=== PATIENT | male | born 1990 | race Caucasian/White ===

== ENCOUNTER 2024-11-05 06:12 | Inpatient (IN) | payer OTHER ==
[2024-11-05] MEDS ORDERED: LORazepam 1 MG TAB PO PRN ×4 (06:38)
[2024-11-05] MEDS ORDERED: LORazepam 0.5 MG TAB PO PRN (06:38)
[2024-11-05] MEDS ORDERED: LORazepam 1 MG/0.5 ML VIAL IV PRN ×4 (06:38→08:33)
--- NOTE | 2024-11-05 06:45 | ED ---
Alcohol HPI - General Chief Complaint: Alcohol Stated Complaint: halluncinations from alcohol detox Time Seen by Provider: 11/05/24 06:13 Source: patient, RN notes reviewed Mode of arrival: EMS Limitations: no limitations - History of Present Illness Initial Comments: This is a 33-year-old male who presents to the emergency department for alcohol withdrawals. Patient checked into [facility] on 11/03 for alcohol abuse. He reports that he stopped drinking alcohol on the third before he checked in. He does report a history of alcohol withdrawals, and states that he typically gets confused and hallucinates for 3 to 4 days. States that this is worse at night because he is tired. Denies any history of withdrawal seizures. He is on the oral Ativan withdrawal protocol at [facility]. Reports mild nausea. He was sent in for evaluation, as he began hallucinating this morning. He reportedly thought that a member of the nursing staff was his daughter and also asked if he was a fighter. MD Complaint: alcohol withdrawal - Related Data Allergies Allergy/AdvReac Type Severity Reaction Status Date / Time No Known Allergies Allergy Verified 11/05/24 06:26 Review of Systems ROS Statement: Those systems with pertinent positive or pertinent negative responses have been documented in the HPI. ROS Other: All systems not noted in ROS Statement are negative. Past Medical History Additional Past Medical History / Comment(s): ETOH abuse History of Any Multi-Drug Resistant Organisms: None Reported Past Surgical History: No Surgical Hx Reported Past Psychological History: Anxiety Smoking Status: Current every day smoker Past Alcohol Use History: Abuse, Heavy Past Drug Use History: Prescription Drug Abuse General Exam Limitations: no limitations General appearance: alert, in no apparent distress Head exam: Present: atraumatic, normocephalic, normal inspection Respiratory exam: Present: normal lung sounds bilaterally. Absent: respiratory distress, wheezes, rales, rhonchi, stridor Cardiovascular Exam: Present: regular rate, normal rhythm GI/Abdominal exam: Present: soft. Absent: distended, tenderness Neurological exam: Present: alert, oriented X3, CN II-XII intact Psychiatric exam: Present: normal affect, normal mood Skin exam: Present: warm, dry, intact, normal color. Absent: rash Course Vital Signs 11/05/24 06:14 Temperature 98.8 F Pulse Rate 91 Respiratory 17 Rate Blood Pressure 130/80 O2 Sat by Pulse 99 Oximetry Medical Decision Making - Medical Decision Making This is a 33-year-old male who presents to the emergency department for alcohol withdrawals. Was pt. sent in by a medical professional or institution? @ -[facility] Did you speak to anyone other than the patient for history? @ -[facility] provided the history as to what took place this morning with the hallucinations. Did you review nursing and triage notes? @ -Yes, and I agree, it is accurate with regards to the patient's symptoms. Were old charts reviewed? @ -No Differential Diagnosis? @ -Sympathomimetic syndrome, alcohol withdrawals, anti-muscarinic syndrome, serotonin syndrome, neuroleptic malignant syndrome, thyrotoxicosis, encephalitis, acute psychosis, hypoglycemia, trauma, sepsis. This is not meant to be an all-inclusive list. EKG interpreted by me (3pts min.)? @ -Not obtained X-rays interpreted by me (1pt min.)? @ -Not obtained CT interpreted by me (1pt min.)? @ -Not obtained U/S interpreted by me (1pt. min.)? @ -Not obtained What testing was considered but not performed? (CT, X-rays, U/S, labs)? Why? @ -None What meds were considered but not given? Why? @ -None Did you discuss the management of the patient with other professionals? @ -Yes, Silvestre Aguirre with [facility], who accepts the patient for admission. Did you reconcile home meds? @ -No Was smoking cessation discussed for >3mins.? @ -I discussed smoking cessation for greater than 3 minutes. The risk of smoking were discussed with the patient including but not limited to risks of cancer, stroke, coronary artery disease and COPD. Also discussed with patient were multiple methods of quitting smoking. Lastly we discussed the financial cost of smoking. Was critical care preformed (if so, how long)? @ -No Were there social determinants of health that impacted care today? How? (Homelessness, low income, unemployed, alcoholism, drug addiction, transportation, low edu. Level, literacy, decrease access to med. care, half-way, rehab)? @ -Alcoholism, leading to withdrawal symptoms. Rehab, who sent the patient in for evaluation. Was there de-escalation of care discussed even if they declined? (Discuss DNR or withdrawal of care, Hospice)? @ -No What co-morbidities impacted this encounter? (DM, HTN, Smoking, COPD, CAD, Cancer, CVA, Hep., AIDS, mental health diagnosis, sleep apnea, morbid obesity)? @ -Alcoholism, smoking Was patient admitted / discharged? @ -Admitted. Lab work demonstrates elevated LFTs consistent with patient's history of alcohol abuse. Lab work otherwise unremarkable. He had an initial CIWA of 4 on arrival, which progressed to 11. He continued hallucinating and was not making much of any sense during conversation. He also became very paranoid and aggressive. Given that his symptoms were worsening despite being on the oral Ativan withdrawal protocol, he was admitted to medicine for alcohol withdrawal delirium. CIWA protocol ordered. Case discussed with ED attending Dr. Mcdonough. Undiagnosed new problem with uncertain prognosis? @ -None Drug Therapy requiring intensive monitoring for toxicity (Heparin, Nitro, Insulin, Cardizem)? @ -None Were any procedures done? @ -None Diagnosis/symptom? @ -Alcohol withdrawal delirium Acute, or Chronic, or Acute on Chronic? @ -Acute Uncomplicated (without systemic symptoms) or Complicated (systemic symptoms)? @ -Uncomplicated Side effects of treatment? @ -None Exacerbation, Progression, or Severe Exacerbation] @ -Not applicable Poses a threat to life or bodily function? @ -Yes, can lead to DTs, which can be life-threatening. - Lab Data Result diagrams: 11/05/24 07:11 11/05/24 07:11 Lab Results 11/05/24 11/05/24 Range/Units 07:11 07:11 WBC 4.05 L (4.50-10.00) 10*3/uL RBC 4.85 (4.40-5.60) 10*6/uL Hgb 14.0 (13.0-17.0) g/dL Hct 42.2 (39.6-50.0) % MCV 87.0 (80.0-97.0) fL MCH 28.9 (27.0-32.0) pg MCHC 33.2 (32.0-37.0) g/dL Plt Count 169 (140-440) 10*3/uL MPV 9.9 (9.5-12.2) fL Immature Gran % (Auto) 0.5 % Neutrophils % 55.6 % Lymphocytes % 29.6 % Monocytes % 9.9 % Eosinophils % 3.7 % Basophils % 0.7 % Immature Gran # 0.02 (0.00-0.04) 10*3/uL Neutrophils # 2.25 (1.80-7.70) 10*3/uL Lymphocytes # 1.20 (0.90-5.00) 10*3/uL Monocytes # 0.40 (0.20-1.00) 10*3/uL Eosinophils # 0.15 (0.04-0.35) 10*3/uL Basophils # 0.03 (0.00-0.10) 10*3/uL Sodium 139 (137-145) mmol/L Potassium 4.0 (3.5-5.1) mmol/L Chloride 97 L (98-107) mmol/L Carbon Dioxide 28 (22-30) mmol/L Anion Gap 14 mmol/L BUN 15 (9-20) mg/dL Creatinine 0.93 (0.66-1.25) mg/dL Est GFR (CKD-EPI)AfAm >90 (>60 ml/min/1.73 sqM) Est GFR (CKD-EPI)NonAf >90 (>60 ml/min/1.73 sqM) Glucose 118 H (74-99) mg/dL Calcium 9.7 (8.4-10.2) mg/dL Phosphorus 3.5 (2.5-4.5) mg/dL Magnesium 2.2 (1.6-2.3) mg/dL Total Bilirubin 0.9 (0.2-1.3) mg/dL AST 197 H (17-59) U/L ALT 201 H (4-49) U/L Alkaline Phosphatase 84 (38-126) U/L Total Protein 9.0 H (6.3-8.2) g/dL Albumin 5.2 H (3.5-5.0) g/dL Serum Alcohol <10 mg/dL Disposition Clinical Impression: Alcohol withdrawal delirium, Nicotine dependence Disposition: ADMITTED IP TO THIS HOSP
[2024-11-05 07:25] LABS: Basophils # (A) 0.03 10*3/uL (0.00-0.10); Basophils % (A) 0.7 %; Eosinophils # (A) 0.15 10*3/uL (0.04-0.35); Eosinophils % (A) 3.7 %; HCT 42.2 % (39.6-50.0); HGB 14.0 g/dL (13.0-17.0); Lymphocytes # (A) 1.20 10*3/uL (0.90-5.00); Lymphocytes % (A) 29.6 %; MCH 28.9 pg (27.0-32.0); MCHC 33.2 g/dL (32.0-37.0); MCV 87.0 fL (80.0-97.0); Monocytes # (A) 0.40 10*3/uL (0.20-1.00); Monocytes % (A) 9.9 %; Neutrophils # (A) 2.25 10*3/uL (1.80-7.70); Neutrophils % (A) 55.6 %; Platelet Count 169 10*3/uL (140-440); RBC 4.85 10*6/uL (4.40-5.60); RDW 13.7 % (11.5-14.5); WBC 4.05 10*3/uL (4.50-10.00)
[2024-11-05 07:33] LABS: ALT 201 U/L (4-49); AST 197 U/L (17-59); African American GFR (CKD) >90 (>60 ml/min/1.73 sqM); Albumin 5.2 g/dL (3.5-5.0); Alkaline Phosphatase 84 U/L (38-126); Anion Gap 14 mmol/L; Blood Urea Nitrogen 15 mg/dL (9-20); Calcium 9.7 mg/dL (8.4-10.2); Carbon Dioxide 28 mmol/L (22-30); Chloride 97 mmol/L (98-107); Glucose 118 mg/dL (74-99); Magnesium 2.2 mg/dL (1.6-2.3); Non-African American GFR(CKD) >90 (>60 ml/min/1.73 sqM); Potassium 4.0 mmol/L (3.5-5.1); Sodium 139 mmol/L (137-145); Total Protein 9.0 g/dL (6.3-8.2)
[2024-11-05] MEDS: SODIUM CHLORIDE 0.9% 1,000 ML IV ONE (08:19)
[2024-11-05] MEDS: diphenhydrAMINE 50 MG/ML 1 ML VIAL IVP STA (08:24)
[2024-11-05] MEDS: LORazepam 1 MG/0.5 ML VIAL IV STA ×2 (08:26→10:25)
[2024-11-05] MEDS: ONDANSETRON 4 MG/2 ML VIAL IVP STA (08:27)
[2024-11-05] MEDS: NICOTINE 14MG/24HR PATCH TRANSDERM STA (08:29)
[2024-11-05] MEDS ORDERED: NALOXONE 0.4 MG/ML 1 ML VIAL IV PRN (08:33)
[2024-11-05] MEDS: MULTIVITAMINS, THERA 1 EACH TAB PO SCH (08:38)
[2024-11-05] MEDS: FOLIC ACID 1 MG TAB PO SCH (08:38)
[2024-11-05] MEDS: THIAMINE 100 MG/ML 2 ML VIAL IM STA (08:39)
[2024-11-05] MEDS: chlordiazePOXIDE 25 MG CAP PO SCH (09:08)
[2024-11-05] MEDS: PANTOPRAZOLE 40 MG/10 ML VIAL IV SCH (09:10)
[2024-11-05 10:19] LABS: Barbiturate Screen,Urine Not Detected (NotDetected); Benzodiazepines Screen,Urine Detected (NotDetected); Opiate Screen,Urine Detected (NotDetected); Oxycodone Screen, Urine Not Detected (NotDetected); Phencyclidine Screen,Urine Not Detected (NotDetected); Tricyclic Antidepressant,Urine Not Detected (NotDetected); Urn Cannabinoid Scrn Not Detected (NotDetected)
[2024-11-05] MEDS: SODIUM CHLORIDE 0.9% 1,000 ML IV SCH (10:25)
[2024-11-05] MEDS: DEXTROSE 5%-0.45% NACL 1,000 ML IV SCH (11:17)
[2024-11-05] MEDS: LORazepam 1 MG/0.5 ML VIAL IV PRN ×3 (11:29→19:10)
--- NOTE | 2024-11-05 13:54 | P.HPIM ---
History of Present Illness H&P Date: 11/05/24 History of Presenting Illness: Patient is a 33-year-old male with a past medical history of alcoholism drinking a reported fifth and a half a day of liquor with last drink reported to be on the morning of 11/03/24. Patient was in inpatient rehab at [facility] where he was admitted on 11/03/2024, however overnight patient's alcohol withdrawal symptoms were reported to be significantly worsened despite administration of oral Ativan. Patient with moderate tremors, diaphoresis, confusion, agitation, aggressive behaviors and experiencing visual and auditory hallucinations. Patient was sent to our facility from [facility] for inpatient medical assisted detox due to significant alcohol withdrawal with delirium tremens. Upon arrival to our facility, patient underwent evaluation in the emergency department. Signs upon arrival show blood pressure 130/80, heart rate 91, respiratory rate 17, temp 98.8 F, and SpO2 of 99% on room air. Labs completed and reviewed. CBC showing leukopenia with WBC count of 4.05. BMP showing hypochloremia with chloride of 97. Blood glucose 118. Calcium 9.7. Magnesium 2.2. Liver profile showing transaminitis with AST of 197, ALT of 201, and alkaline phosphatase of 84. Urine drug screen positive for opiates and benzodiazepines. Serum alcohol level was negative. Patient seen and fully evaluated in ER room 14. Patient is restless, agitated, confused, and having noted visual and auditory hallucinations patient walking ar ound the room looking for his 's. Difficulty with redirecting. Patient was walking around the room looking for his and kids. Patient looking under the bed and talking to things in the room. Patient holding paper towel like a cigarette with motions as though he was smoking. A sitter was brought to bedside to maintain the safety. Review of systems: ROS limited secondary to acute delirium. Physical exam: Vital signs reviewed and stable. General: Nontoxic, no distress and appears stated age. Derm: Skin warm normal coloration for ethnicity. Mildly diaphoretic Head: Atraumatic, normocephalic and symmetric. Eyes: EOM's intact, no lid lag, and anicteric sclera Mouth: no lip lesions, mucus membranes moist Cardiovascular: regular rate and rhythm with normal S1S2, no murmur, positive posterior tibial pulses bilaterally, and cap refill < 2 seconds. Lungs: Respirations even, regular, and unlabored on room air. Lungs CTA bilaterally, no rhonchi, no rales, no wheezing, and no accessory muscle usage. Abdominal: soft, nontender to palpation, no guarding, no appreciable organomegaly Ext: ROM intact. No gross muscle atrophy, no edema, no contractures Neuro/psych: Speech clear, face symmetrical GCS 14.. Patient fidgety and restless and difficult time following directions or being redirected. Visual and auditory hallucinations present. Assessment and Plan of Care: Alcohol withdrawal with delirium tremens Acute Metabolic encephalopathy with visual and auditory hallucinations, secondary to above Transaminitis Longstanding history of alcohol abuse -Order placed for monitoring of CIWA scores and patient to be medicated with Ativan 0.5 mg every 4 hours as needed for CIWA score of 4-5, Ativan 1 mg every 4 hours for CIWA score of 6-7, Ativan 2 mg every 3 hours CIWA score of 8-9, and Ativan 2 mg every 2 hours forr CIWA score of 10 or greater. -Patient started on scheduled Librium 50 mg 3 times daily in addition to CIWA protocol. -Continuous IV hydration with 0.9% normal saline at 150 cc/h. -Thiamine 100 mg daily, and Multivitamin daily, and Folate 1 mg daily -Seizure, fall, aspiration, and elopement precautions in place. -Urine drug screen negative for opiates and benzodiazepines -Continued close monitoring of electrolytes and replace as needed. -Telemetry monitoring. Nicotine dependence Recommend smoking cessation, order placed for nicotine patch 21 mg daily. Data and imaging reviewed: As stated above in HPI The patient is admitted with an anticipated greater than 2 midnight stay for e valuation of alcohol withdrawal with delirium tremens CODE STATUS: Full code DVT prophylaxis: FRACISCO menjivar and SCDs Discussed with: Patient, sitter at bedside, RN, and ED provider Anticipated discharge date: Pending clinical course Anticipated discharge place: Return to [facility] Patient was seen independently by Nurse Practitioner. This document was prepared using [employer] dictation software. Please allow for errors in mapping technician while rare they do occur. Silvestre Aguirre NP rendered care for this patient independently, reviewed the findings and plan as documented in the note above and agree with plan. I did not physically speak with or examine the patient on this date. Past Medical History Additional Past Medical History / Comment(s): ETOH abuse History of Any Multi-Drug Resistant Organisms: None Reported Past Surgical History: No Surgical Hx Reported Past Psychological History: Anxiety Smoking Status: Current every day smoker Past Alcohol Use History: Abuse, Heavy Past Drug Use History: Prescription Drug Abuse Medications and Allergies Home Medications Medication Instructions Recorded Confirmed Type Acetaminophen [Tylenol] 650 mg PO Q4H PRN 11/05/24 11/05/24 History Calcium Phos/D3/Magnesium/Zinc 1 tab PO TID PRN 11/05/24 11/05/24 History [Xbhivwg-Kbs-Aicr-Vitamin D3] Chlorpheniramine Maleate 4 mg PO Q4H PRN 11/05/24 11/05/24 History [Chlor-Trimeton] Hyoscyamine Sulfate [Levsin] 0.125 mg PO QID PRN 11/05/24 11/05/24 History Ibuprofen [Motrin Ib] 600 mg PO Q6H PRN 11/05/24 11/05/24 History LORazepam [Ativan] 1 - 2 mg PO Q4H PRN 11/05/24 11/05/24 History Loperamide HCl [Imodium A-D] 4 mg PO QID PRN 11/05/24 11/05/24 History Melatonin 10 mg PO HS 11/05/24 11/05/24 History Mirtazapine [Remeron] 15 mg PO HS 11/05/24 11/05/24 History Multivitamins, Thera [Multivitamin 1 tab PO DAILY 11/05/24 11/05/24 History (formulary)] Mylanta Regular Strength 30 ml PO Q4H PRN 11/05/24 11/05/24 History Thiamine HCl [Vitamin B-1] 100 mg PO DAILY 11/05/24 11/05/24 History buprenorphine HCL [Subutex] See Rx Instructions .ROUTE .COMPLEX 11/05/24 11/05/24 History ondansetron HCL [Zofran] 8 mg PO Q6H PRN 11/05/24 11/05/24 History Allergies Allergy/AdvReac Type Severity Reaction Status Date / Time No Known Allergies Allergy Verified 11/05/24 13:23 Physical Exam Vitals: Vital Signs Temp Pulse Resp BP Pulse Ox 11/05/24 06:14 98.8 F 91 17 130/80 99 Intake and Output 11/04/24 11/05/24 11/05/24 22:59 06:59 14:59 Other: Weight 81.647 kg Results CBC & Chem 7: 11/05/24 07:11 11/05/24 07:11 Labs: Abnormal Lab Results - Last 24 Hours (Table) 11/05/24 11/05/24 Range/Units 07:11 07:11 WBC 4.05 L (4.50-10.00) 10*3/uL Chloride 97 L (98-107) mmol/L Glucose 118 H (74-99) mg/dL AST 197 H (17-59) U/L ALT 201 H (4-49) U/L Total Protein 9.0 H (6.3-8.2) g/dL Albumin 5.2 H (3.5-5.0) g/dL
[2024-11-05] MEDS: ACETAMINOPHEN TAB 325 MG TAB PO PRN (19:05)
[2024-11-05] MEDS: ONDANSETRON 4 MG/2 ML VIAL IVP PRN (19:06)
[2024-11-05] MEDS: LORazepam 1 MG TAB PO PRN (21:10)
[2024-11-06] MEDS: NICOTINE 21MG/24HR PATCH TRANSDERM SCH (08:15)
[2024-11-06] MEDS: KETOROLAC 15 MG/ML 1 ML VIAL IVP PRN (08:15)
[2024-11-06] MEDS: THIAMINE 100 MG TAB PO SCH (08:15)
[2024-11-06] MEDS: LORazepam 0.5 MG TAB PO PRN (09:24)
[2024-11-06] MEDS: LORazepam 1 MG TAB PO PRN (11:28)
--- NOTE | 2024-11-06 15:47 | P.PN ---
Subjective Progress Note Date: 11/06/24 Hospital Course: Patient is a 33-year-old male with a past medical history of alcoholism drinking a reported fifth and a half a day of liquor with last drink reported to be on the morning of 11/03/24. Patient was in inpatient rehab at [facility] where he was admitted on 11/03/2024, however overnight patient's alcohol withdrawal symptoms were reported to be significantly worsened despite administration of oral Ativan. Patient with moderate tremors, diaphoresis, confusion, agitation, aggressive behaviors and experiencing visual and auditory hallucinations. Patient was sent to our facility from [facility] for inpatient medical assisted detox due to significant alcohol withdrawal with delirium tremens. Upon arrival to our facility, patient underwent evaluation in the emergency department. Signs upon arrival show blood pressure 130/80, heart rate 91, respiratory rate 17, temp 98.8 F, and SpO2 of 99% on room air. Labs completed and reviewed. CBC showing leukopenia with WBC count of 4.05. BMP showing hypochloremia with chloride of 97. Blood glucose 118. Calcium 9.7. Magnesium 2.2. Liver profile showing transaminitis with AST of 197, ALT of 201, and alkal ine phosphatase of 84. Urine drug screen positive for opiates and benzodiazepines. Serum alcohol level was negative. Patient seen and fully evaluated in ER room 14. Patient is restless, agitated, confused, and having noted visual and auditory hallucinations patient walking around the room looking for his 's. Difficulty with redirecting. Patient was walking around the room looking for his and kids. Patient looking under the bed and talking to things in the room. Patient holding paper towel like a cigarette with motions as though he was smoking. A sitter was brought to bedside to maintain the safety. Physical exam: Vital signs reviewed and stable. General: Nontoxic, no distress and appears stated age. Derm: Skin warm normal coloration for ethnicity. Mildly diaphoretic Head: Atraumatic, normocephalic and symmetric. Eyes: EOM's intact, no lid lag, and anicteric sclera Mouth: no lip lesions, mucus membranes moist Cardiovascular: regular rate and rhythm with normal S1S2, no murmur, positive posterior tibial pulses bilaterally, and cap refill < 2 seconds. Lungs: Respirations even, regular, and unlabored on room air. Lungs CTA bilater ally, no rhonchi, no rales, no wheezing, and no accessory muscle usage. Abdominal: soft, nontender to palpation, no guarding, no appreciable organomegaly Ext: ROM intact. No gross muscle atrophy, no edema, no contractures Neuro/psych: Speech clear, face symmetrical GCS 14.. Patient fidgety and res tless. Assessment and Plan of Care: Alcohol withdrawal with delirium tremens Acute Metabolic encephalopathy with visual and auditory hallucinations, secondary to above Transaminitis Longstanding history of alcohol abuse - Continue monitoring of CIWA scores and patient to be medicated with Ativan 0.5 mg every 4 hours as needed for CIWA score of 4-5, Ativan 1 mg every 4 hours for CIWA score of 6-7, Ativan 2 mg every 3 hours CIWA score of 8-9, and Ativan 2 mg every 2 hours forr CIWA score of 10 or greater. Patient has had a total of 16 mg of Ativan over the past 24 hours in addition to scheduled Librium. -Continue scheduled Librium 50 mg 3 times daily in addition to CIWA protocol. -Thiamine 100 mg daily, and Multivitamin daily, and Folate 1 mg daily -Seizure, fall, aspiration, and elopement precautions in place. -Urine drug screen negative for opiates and benzodiazepines -Continued close monitoring of electrolytes and replace as needed. -Telemetry monitoring. Nicotine dependence Recommend smoking cessation, order placed for nicotine patch 21 mg daily. Data and imaging reviewed: Labs reviewed. CBC showing leukopenia with WBC count of 4.05. BMP showing hypochloremia with chloride of 97. Blood glucose 118. Calcium 9.7. Magnesium 2.2. Liver profile showing transaminitis with AST of 197, ALT of 201, and alkaline phosphatase of 84. Urine drug screen positive for opiates and benzodiazepines. -Vital signs reviewed. Blood pressure 139/89, heart rate 53, respiratory rate 16, temp 98.0 F, SpO2 98% on room air CODE STATUS: Full code DVT prophylaxis: FRACISCO menjivar and SCDs Discussed with: Patient, sitter at bedside, patient's sister and mother, and RN Anticipated discharge date: Pending clinical course Anticipated discharge place: Per family patient plans to be discharged to [facility] Patient was seen independently by Nurse Practitioner. This document was prepared using [employer] dictation software. Please allow for errors in zipper ironer while rare they do occur. Silvestre Aguirre NP rendered care for this patient independently, reviewed the findings and plan as documented in the note above and agree with plan. I did not physically speak with or examine the patient on this date. Objective - Vital Signs Vital signs: Vital Signs Temp 98 F 11/06/24 07:00 Pulse 53 L 11/06/24 07:00 Resp 16 11/06/24 07:00 BP 139/89 11/06/24 07:00 Pulse Ox 98 11/06/24 07:00 FiO2 Intake & Output 11/05/24 11/06/24 11/06/24 18:59 06:59 18:59 Intake Total 2240 Balance 2240 Weight 81.647 kg Intake: Intake, IV Titration 1650 Amount Sodium Chloride 0.9% 1, 1650 000 ml @ 150 mls/hr IV . Q6H40M [facility] Rx#:[id number] Oral 590 Other: Voiding Method Toilet # Voids 3 - Labs CBC & Chem 7: 11/05/24 07:11 11/05/24 07:11 Labs: Abnormal Lab Results - Last 24 Hours (Table) 11/05/24 Range/Units 09:56 Urine Opiates Screen Detected H (NotDetected) U Benzodiazepines Scrn Detected H (NotDetected)
[2024-11-06] MEDS: IBUPROFEN 400 MG TAB PO PRN (16:09)
[2024-11-07 08:22] LABS: HCT 44.5 % (39.6-50.0); HGB 14.3 g/dL (13.0-17.0); MCH 28.6 pg (27.0-32.0); MCHC 32.1 g/dL (32.0-37.0); MCV 89.0 FL (80.0-97.0); NRBC Per 100 WBC 0 X 10*3/uL (0.00-0.01); Platelet Count 190 X 10*3/uL (140-440); RBC 5.00 X 10*6/uL (4.40-5.60); RDW 13.8 % (11.5-14.5); WBC 4.79 X 10*3/uL (4.50-10.00)
[2024-11-07 08:55] LABS: ALT 164 U/L (10-49); AST 106 U/L (14-35); Albumin 4.5 g/dL (3.8-4.9); Albumin/Globulin Ratio 1.61 Ratio (1.60-3.17); Alkaline Phosphatase 67 U/L (41-126); Anion Gap 10.00 mmol/L (4.00-12.00); BUN/Creat Ratio 4.67 Ratio (12.00-20.00); Blood Urea Nitrogen 4.2 mg/dL (9.0-27.0); Calcium 9.5 mg/dL (8.7-10.3); Carbon Dioxide 25.0 mmol/L (21.6-31.8); Chloride 101 mmol/L (96-109); Globulin 2.8 g/dL (1.6-3.3); Glucose 173 mg/dL (70-110); Magnesium 2.0 mg/dL (1.5-2.4); Potassium 4.1 mmol/L (3.5-5.5); Sodium 136 mmol/L (135-145); Total Protein 7.3 g/dL (6.2-8.2)
--- NOTE | 2024-11-07 15:11 | P.PN ---
Subjective Progress Note Date: 11/07/24 Hospital Course: Patient is a 33-year-old male with a past medical history of alcoholism drinking a reported fifth and a half a day of liquor with last drink reported to be on the morning of 11/03/24. Patient was in inpatient rehab at [facility] where he was admitted on 11/03/2024, however overnight patient's alcohol withdrawal symptoms were reported to be significantly worsened despite administration of oral Ativan. Patient with moderate tremors, diaphoresis, confusion, agitation, aggressive behaviors and experiencing visual and auditory hallucinations. Patient was sent to our facility from [facility] for inpatient medical assisted detox due to significant alcohol withdrawal with delirium tremens. Upon arrival to our facility, patient underwent evaluation in the emergency department. Signs upon arrival show blood pressure 130/80, heart rate 91, respiratory rate 17, temp 98.8 F, and SpO2 of 99% on room air. Labs completed and reviewed. CBC showing leukopenia with WBC count of 4.05. BMP showing hypochloremia with chloride of 97. Blood glucose 118. Calcium 9.7. Magnesium 2.2. Liver profile showing transaminitis with AST of 197, ALT of 201, and alkal ine phosphatase of 84. Urine drug screen positive for opiates and benzodiazepines. Serum alcohol level was negative. Physical exam: Patient seen and fully evaluated at bedside this morning. Patient's family members also at bedside again this morning. Patient currently alert and oriented to person, place, time, and situation. He continues to have mild tremors, fidgetiness and anxiety but no longer having noted hallucinations. Vital signs reviewed and stable. General: Nontoxic, no distress and appears stated age. Derm: Skin warm normal coloration for ethnicity. Mildly diaphoretic Head: Atraumatic, normocephalic and symmetric. Eyes: EOM's intact, no lid lag, and anicteric sclera Mouth: no lip lesions, mucus membranes moist Cardiovascular: regular rate and rhythm with normal S1S2, no murmur, positive posterior tibial pulses bilaterally, and cap refill < 2 seconds. Lungs: Respirations even, regular, and unlabored on room air. Lungs CTA bilaterally, no rhonchi, no rales, no wheezing, and no accessory muscle usage. Abdominal: soft, nontender to palpation, no guarding, no appreciable organomegaly Ext: ROM intact. No gross muscle atrophy, no edema, no contractures Neuro/psych: Alert and oriented x 4. Speech clear, face symmetrical GCS 15.. Patient fidgety and restless. Assessment and Plan of Care: Alcohol withdrawal with delirium tremens Acute Metabolic encephalopathy with visual and auditory hallucinations, secondary to above Transaminitis Longstanding history of alcohol abuse - Continue monitoring of CIWA scores and patient to be medicated with Ativan 0.5 mg every 4 hours as needed for CIWA score of 4-5, Ativan 1 mg every 4 hours for CIWA score of 6-7, Ativan 2 mg every 3 hours CIWA score of 8-9, and Ativan 2 mg every 2 hours forr CIWA score of 10 or greater. Patient has had a total of 8 mg of Ativan over the past 24 hours in addition to scheduled Librium. -Continue scheduled Librium 50 mg 3 times daily in addition to CIWA protocol. -Thiamine 100 mg daily, and Multivitamin daily, and Folate 1 mg daily -Seizure, fall, aspiration, and elopement precautions in place. -Urine drug screen negative for opiates and benzodiazepines -Continued close monitoring of electrolytes and replace as needed. -Telemetry monitoring. Nicotine dependence Recommend smoking cessation, order placed for nicotine patch 21 mg daily. Data and imaging reviewed: Labs reviewed. CBC unremarkable. BMP normal findings. Blood glucose 173. Calcium 9.5. Magnesium 2.0. Liver profile showing continued elevation but improvement of liver enzymes with AST of 106 and ALT of 164. -Vital signs reviewed. Blood pressure 139/84, heart rate 60, respiratory rate 18, temp 97.9 F, and SpO2 of 99% on room air CODE STATUS: Full code DVT prophylaxis: RFACISCO menjivar and SCDs Discussed with: Patient, sitter at bedside, patient's sister and mother, and RN Anticipated discharge date: Pending clinical course Anticipated discharge place: Per family patient plans to be discharged to [place] [facility] facility Patient was seen independently by Nurse Practitioner. This document was prepared using [employer] dictation software. Please allow for errors in refractory specialist while rare they do occur. Silvestre Aguirre NP rendered care for this patient independently, reviewed the findings and plan as documented in the note above and agree with plan. I did not physically speak with or examine the patient on this date. Objective - Vital Signs Vital signs: Vital Signs Temp 97.9 F 11/07/24 07:11 Pulse 60 11/07/24 07:11 Resp 18 11/07/24 07:11 BP 139/84 11/07/24 07:11 Pulse Ox 99 11/07/24 07:11 FiO2 Intake & Output 11/06/24 11/07/24 11/07/24 18:59 06:59 18:59 Other: Voiding Method Toilet # Voids 2 3 - Labs CBC & Chem 7: 11/07/24 04:34 11/07/24 04:34
[2024-11-08 12:14] VITALS: BP 136/82; PULSE 93; RESP 20; TEMP 97.5
--- NOTE | 2024-11-08 12:14 | P.PN ---
Subjective Progress Note Date: 11/08/24 Hospital Course: Patient is a 33-year-old male with a past medical history of alcoholism drinking a reported fifth and a half a day of liquor with last drink reported to be on the morning of 11/03/24. Patient was in inpatient rehab at [place] where he was admitted on 11/03/2024, however overnight patient's alcohol withdrawal symptoms were reported to be significantly worsened despite administration of oral Ativan. Patient with moderate tremors, diaphoresis, confusion, agitation, aggressive behaviors and experiencing visual and auditory hallucinations. Patient was sent to our facility from [place] for inpatient medical assisted detox due to significant alcohol withdrawal with delirium tremens. Upon arrival to our facility, patient underwent evaluation in the emergency department. Signs upon arrival show blood pressure 130/80, heart rate 91, respiratory rate 17, temp 98.8 F, and SpO2 of 99% on room air. Labs completed and reviewed. CBC showing leukopenia with WBC count of 4.05. BMP showing hypochloremia with chloride of 97. Blood glucose 118. Calcium 9.7. Magnesium 2.2. Liver profile showing transaminitis with AST of 197, ALT of 201, and alkal ine phosphatase of 84. Urine drug screen positive for opiates and benzodiazepines. Serum alcohol level was negative. Physical exam: Patient seen and fully evaluated at bedside this morning. Denies having any new needs or concerns at this time. Patient has received 7 mg of Ativan over the past 24 hours. Vital signs reviewed and stable. General: Nontoxic, no distress and appears stated age. Derm: Skin warm normal coloration for ethnicity. Mildly diaphoretic Head: Atraumatic, normocephalic and symmetric. Eyes: EOM's intact, no lid lag, and anicteric sclera Mouth: no lip lesions, mucus membranes moist Cardiovascular: regular rate and rhythm with normal S1S2, no murmur, positive posterior tibial pulses bilaterally, and cap refill < 2 seconds. Lungs: Respirations even, regular, and unlabored on room air. Lungs CTA bilaterally, no rhonchi, no rales, no wheezing, and no accessory muscle usage. Abdominal: soft, nontender to palpation, no guarding, no appreciable organomegaly Ext: ROM intact. No gross muscle atrophy, no edema, no contractures Neuro/psych: Alert and oriented x 4. Speech clear, face symmetrical GCS 15.. Patient fidgety and restless. Assessment and Plan of Care: Alcohol withdrawal with delirium tremens Acute Metabolic encephalopathy with visual and auditory hallucinations, secondary to above Transaminitis Longstanding history of alcohol abuse - Continue monitoring of CIWA scores and patient to be medicated with Ativan 0.5 mg every 4 hours as needed for CIWA score of 4-5, Ativan 1 mg every 4 hours for CIWA score of 6-7, Ativan 2 mg every 3 hours CIWA score of 8-9, and Ativan 2 mg every 2 hours forr CIWA score of 10 or greater. Patient has had a total of 7 mg of Ativan over the past 24 hours in addition to scheduled Librium. -Continue scheduled Librium 50 mg 3 times daily in addition to CIWA protocol. -Thiamine 100 mg daily, and Multivitamin daily, and Folate 1 mg daily -Seizure, fall, aspiration, and elopement precautions in place. -Urine drug screen negative for opiates and benzodiazepines -Continued close monitoring of electrolytes and replace as needed. -Telemetry monitoring. Nicotine dependence Recommend smoking cessation, order placed for nicotine patch 21 mg daily. Data and imaging reviewed: Labs reviewed. CBC unremarkable. BMP normal findings. Blood glucose 173. Calcium 9.5. Magnesium 2.0. Liver profile showing continued elevation but improvement of liver enzymes with AST of 106 and ALT of 164. -Vital signs reviewed. Blood pressure 117/72, heart rate 56, respiratory rate 18, temp 97.9 F, and SpO2 of 98% on room air. CODE STATUS: Full code DVT prophylaxis: FRACISCO hose and SCDs Anticipated discharge date: Pending clinical course Anticipated discharge place: Per family patient plans to be discharged to [place] inpatient [facility] facility Patient was seen independently by Nurse Practitioner. This document was prepared using [employer] dictation software. Please allow for errors in multi punch operator while rare they do occur. Silvestre Aguirre NP rendered care for this patient independently, reviewed the findings and plan as documented in the note above and agree with plan. I did not physically speak with or examine the patient on this date. Objective - Vital Signs Vital signs: Vital Signs Temp 97.9 F 11/08/24 07:10 Pulse 56 L 11/08/24 07:10 Resp 18 11/08/24 07:10 BP 117/72 11/08/24 07:10 Pulse Ox 98 11/08/24 07:10 FiO2 Intake & Output 11/07/24 11/08/24 11/08/24 18:59 06:59 18:59 Intake Total 350 Balance 350 Intake: Oral 350 Other: Voiding Method Toilet # Voids 2 1 - Labs CBC & Chem 7: 11/07/24 04:34 11/07/24 04:34
--- NOTE | 2024-11-08 15:45 | P.DS ---
Providers Date of admission: 11/05/24 08:24 Expected date of discharge: 11/08/24 Attending physician: Armando Hills Primary care physician: Stated None Hospital Course: Discharge Diagnosis: Alcohol withdrawal with delirium tremens Acute Metabolic encephalopathy with visual and auditory hallucinations, secondary to above Transaminitis Longstanding history of alcohol abuse Nicotine dependence Hospital Course: Patient is a 33-year-old male with a past medical history of alcoholism drinking a reported fifth and a half a day of liquor with last drink reported to be on the morning of 11/03/24. Patient was in inpatient rehab at [place] where he was admitted on 11/03/2024, however overnight patient's alcohol withdrawal symptoms were reported to be significantly worsened despite administration of oral Ativan. Patient with moderate tremors, diaphoresis, confusion, agitation, aggressive behaviors and experiencing visual and auditory hallucinations. Patient was sent to our facility from [place] for inpatient medical assisted detox due to significant alcohol withdrawal with delirium tremens. Upon arrival to our facility, patient underwent evaluation in the emergency department. Signs upon arrival show blood pressure 130/80, heart rate 91, respiratory rate 17, temp 98.8 F, and SpO2 of 99% on room air. Labs completed and reviewed. CBC showing leukopenia with WBC count of 4.05. BMP showing hypochloremia with chloride of 97. Blood glucose 118. Calcium 9.7. Magnesium 2.2. Liver profile showing transaminitis with AST of 197, ALT of 201, and alkaline phosphatase of 84. Urine drug screen positive for opiates and benzodiazepines. Serum alcohol level was negative. Physical exam: Vital signs reviewed and stable. General: Nontoxic, no distress and appears stated age. Derm: Skin warm, dry and normal coloration for ethnicity. Head: Atraumatic, normocephalic and symmetric. Eyes: EOM's intact, no lid lag, and anicteric sclera Mouth: no lip lesions, mucus membranes moist Cardiovascular: regular rate and rhythm with normal S1S2, no murmur, positive posterior tibial pulses bilaterally, and cap refill < 2 seconds. Lungs: Respirations even, regular, and unlabored on room air. Lungs CTA bilaterally, no rhonchi, no rales, no wheezing, and no accessory muscle usage. Abdominal: soft, nontender to palpation, no guarding, no appreciable organomegaly Ext: ROM intact. No gross muscle atrophy, no edema, no contractures Neuro/psych: Alert and oriented x 4. Speech clear, face symmetrical GCS 15.. . A total of 33 minutes of time were spent preparing this complex discharge summary. Pt was discharged on 11/08/2024 at 3:40 PM Patient was seen independently by Nurse Practitioner. This document was prepared using [employer] dictation software. Please allow for errors in customer solutions architect while rare they do occur. Silvestre Aguirre NP rendered care for this patient independently, reviewed the findin gs and plan as documented in the note above. I did not physically speak with or examine the patient on this date. Patient Condition at Discharge: Stable Plan - Discharge Summary Discharge Rx Participant: Yes New Discharge Prescriptions: Continue ondansetron HCL [Zofran] 8 mg PO Q6H PRN PRN Reason: Nausea Thiamine HCl [Vitamin B-1] 100 mg PO DAILY Acetaminophen [Tylenol] 650 mg PO Q4H PRN PRN Reason: Pain Or Fever > 100.5 Multivitamins, Thera [Multivitamin (formulary)] 1 tab PO DAILY Mirtazapine [Remeron] 15 mg PO HS Ibuprofen [Motrin Ib] 600 mg PO Q6H PRN PRN Reason: Pain Or Fever > 100.5 Melatonin 10 mg PO HS Chlorpheniramine Maleate [Chlor-Trimeton] 4 mg PO Q4H PRN PRN Reason: withdrawl symptoms/allergy sym Mylanta Regular Strength 30 ml PO Q4H PRN PRN Reason: Gi Upset Loperamide HCl [Imodium A-D] 4 mg PO QID PRN PRN Reason: Diarrhea Hyoscyamine Sulfate [Levsin] 0.125 mg PO QID PRN PRN Reason: withdrawl symptoms/cramps Calcium Phos/D3/Magnesium/Zinc [Rcjgiws-Jdo-Ajqy-Vitamin D3] 1 tab PO TID PRN PRN Reason: withdrawl symptoms LORazepam [Ativan] 1 - 2 mg PO Q4H PRN PRN Reason: WITHDRAWL SYMPTOMS buprenorphine HCL [Subutex] See Rx Instructions .ROUTE .COMPLEX Discharge Medication List Acetaminophen [Tylenol] 650 mg PO Q4H PRN 11/05/24 [History] Calcium Phos/D3/Magnesium/Zinc [Gbjnjpr-Bjd-Zsuu-Vitamin D3] 1 tab PO TID PRN 11/05/24 [History] Chlorpheniramine Maleate [Chlor-Trimeton] 4 mg PO Q4H PRN 11/05/24 [History] Hyoscyamine Sulfate [Levsin] 0.125 mg PO QID PRN 11/05/24 [History] Ibuprofen [Motrin Ib] 600 mg PO Q6H PRN 11/05/24 [History] LORazepam [Ativan] 1 - 2 mg PO Q4H PRN 11/05/24 [History] Loperamide HCl [Imodium A-D] 4 mg PO QID PRN 11/05/24 [History] Melatonin 10 mg PO HS 11/05/24 [History] Mirtazapine [Remeron] 15 mg PO HS 11/05/24 [History] Multivitamins, Thera [Multivitamin (formulary)] 1 tab PO DAILY 11/05/24 [History] Mylanta Regular Strength 30 ml PO Q4H PRN 11/05/24 [History] Thiamine HCl [Vitamin B-1] 100 mg PO DAILY 11/05/24 [History] buprenorphine HCL [Subutex] See Rx Instructions .ROUTE .COMPLEX 11/05/24 [History] ondansetron HCL [Zofran] 8 mg PO Q6H PRN 11/05/24 [History] Follow up Appointment(s)/Referral(s): None,Stated [Primary Care Provider] - 1-2 days Patient Instructions/Handouts: Alcohol Withdrawal (DC), Medical Clearance for Substance Abuse Treatment (DC)
[2024-11-08] MEDS: chlordiazePOXIDE 25 MG CAP PO SCH (16:17)
== END 2024-11-08 18:04 | disposition other institution (70) | DRG 775 ==
LOC: EC 06:12 → 4SSUR 08:24 → 5NMEDONC 16:09
PROVIDERS: ADMIT Student in an Organized Health Care Education/Training Program; ATTEND Student in an Organized Health Care Education/Training Program
DX: F10.231 Alcohol dependence with withdrawal delirium (principal); D72.819 Decreased white blood cell count, unspecified; F17.200 Nicotine dependence, unspecified, uncomplicated; F41.9 Anxiety disorder, unspecified; G93.41 Metabolic encephalopathy; R74.01 Elevation of levels of liver transaminase levels; R45.1 Restlessness and agitation; Z28.21 Immunization not carried out because of patient refusal; Z79.899 Other long term (current) drug therapy
CPT/HCPCS: 36415; 80053; 80306; 80320; 83735; 84100; 85025; 85027; 96372; 96374; 96375; 96376; 99285